=== PATIENT | male | born 1925 | race Caucasian/White ===

== ENCOUNTER → 2016-10-01 | Outpatient (CLI) | payer OTHER ==
[~2016-10-01] MED LIST: ALPR0.5T PO; AML5T PO; ATEN-60 PO; CLON0.2T PO; LEV100T PO; TRIA37.577 PO; [UNRECOGNIZED DRUG - CODE] PO
[2016-10-01 13:19] LABS: Basophils # (auto) 0 uL; Basophils % (auto) 0.2 % (0.0-2.0); Eosinophils # (auto) 0.1 uL; Eosinophils % (auto) 0.7 % (0.0-7.0); Hematocrit 38.9 % (41.0-53.0); Hemoglobin 12.6 g/dL (13.5-17.5); Lymphocytes % (auto) 22.4 % (10.0-50.0); Mean Corpuscular Hemoglobin 29.2 pg (28.0-32.0); Mean Corpuscular Hgb Conc. 32.5 g/dL (32.0-36.0); Mean Corpuscular Volume 89.7 fL (80.0-100.0); Mean Platelet Volume 9.3 fL (7.4-10.4); Monocytes # (auto) 0.7 uL; Monocytes % (auto) 7.8 % (0.0-12.0); Neutrophils # (auto) 6.2 uL; Neutrophils % (auto) 68.9 % (37.0-80.0); Platelet Count (auto) 165 10^3/uL (140-450); Red Cell Distribution Width 15.9 % (11.6-16.0)
[2016-10-01 13:40] LABS: Albumin 4.1 g/dL (3.4-5.0); BUN/Creatinine Ratio 17.4; Bilirubin, Total 0.8 mg/dL (0.2-1.0); Calcium 9.6 mg/dL (8.5-10.1); Potassium 4.3 mmol/L (3.5-5.1)
== END | disposition home or self-care (01) ==
LOC: LAB 12:35
PROVIDERS: ATTEND Internal Medicine
DX: I10 Essential (primary) hypertension (principal); E03.9 Hypothyroidism, unspecified
CPT/HCPCS: 36415; 80053; 84439; 84443; 85025

== ENCOUNTER 2016-10-11 11:28 | Emergency (ER) | payer OTHER ==
[~2016-10-11] VITALS: Ht 175.3 cm; Wt 108.9 kg
[2016-10-11 12:06] VITALS: BP 138/92
[2016-10-11 13:25] LABS: Basophils # (auto) 0 uL; Basophils % (auto) 0.1 % (0.0-2.0); Eosinophils # (auto) 0.1 uL; Eosinophils % (auto) 0.8 % (0.0-7.0); Hematocrit 35.9 % (41.0-53.0); Hemoglobin 11.7 g/dL (13.5-17.5); Lymphocytes # (auto) 1.3 uL; Lymphocytes % (auto) 12.8 % (10.0-50.0); Mean Corpuscular Hemoglobin 29.3 pg (28.0-32.0); Mean Corpuscular Hgb Conc. 32.5 g/dL (32.0-36.0); Mean Platelet Volume 9.4 fL (7.4-10.4); Monocytes % (auto) 9.6 % (0.0-12.0); Neutrophils # (auto) 7.7 uL; Neutrophils % (auto) 76.7 % (37.0-80.0); Platelet Count (auto) 207 10^3/uL (140-450); Red Cell Distribution Width 15.3 % (11.6-16.0)
[2016-10-11 14:00] LABS: Albumin 3.4 g/dL (3.4-5.0); Alkaline Phosphatase 87 U/L (45-117); Anion Gap 12 (5-15); Aspartate Aminotransferase 32 U/L (15-37); BUN/Creatinine Ratio 21.2; Bilirubin, Total 1.1 mg/dL (0.2-1.0); Blood Urea Nitrogen 22 mg/dL (7-18); Calcium 8.9 mg/dL (8.5-10.1); Carbon Dioxide 26 mmol/L (21-32); Chloride 104 mmol/L (98-107); GFR African American 86 mL/min; GFR Non-African American 71 mL/min; Glucose 100 mg/dL (74-106); Magnesium 2.4 mg/dL (1.6-2.6); Potassium 3.7 mmol/L (3.5-5.1); Sodium 142 mmol/L (136-145); Total Protein 7.6 g/dL (6.4-8.2)
== END 2016-10-11 15:38 | disposition left against medical advice (07) ==
LOC: ER 11:28
DX: R53.1 Weakness (principal); R06.02 Shortness of breath; Z53.21 Procedure and treatment not carried out due to patient leaving prior to being seen by health care provider
CPT/HCPCS: 36415; 71020; 80053; 83735; 84484; 85025; 93005

== ENCOUNTER → 2016-12-03 | Outpatient (CLI) | payer OTHER ==
[2016-12-03 16:54] LABS: Basophils # (auto) 0 uL; Basophils % (auto) 0.4 % (0.0-2.0); Eosinophils # (auto) 0.1 uL; Eosinophils % (auto) 1.3 % (0.0-7.0); Hematocrit 38.2 % (41.0-53.0); Hemoglobin 12.3 g/dL (13.5-17.5); Lymphocytes # (auto) 1.8 uL; Lymphocytes % (auto) 25.2 % (10.0-50.0); Mean Corpuscular Hemoglobin 28.6 pg (28.0-32.0); Mean Corpuscular Hgb Conc. 32.2 g/dL (32.0-36.0); Mean Corpuscular Volume 88.8 fL (80.0-100.0); Mean Platelet Volume 8.7 fL (7.4-10.4); Monocytes # (auto) 0.6 uL; Monocytes % (auto) 8.8 % (0.0-12.0); Neutrophils # (auto) 4.7 uL; Neutrophils % (auto) 64.3 % (37.0-80.0); Platelet Count (auto) 170 10^3/uL (140-450); White Blood Cell 7.3 10^3/uL (4.4-10.8)
== END | disposition home or self-care (01) ==
LOC: LAB 15:43
PROVIDERS: ATTEND Internal Medicine
DX: I10 Essential (primary) hypertension (principal)
CPT/HCPCS: 36415; 82607; 83540; 84132; 84439; 84443; 85025

== ENCOUNTER → 2017-04-21 | Outpatient (CLI) | payer OTHER ==
[2017-04-21 08:23] LABS: Basophils # (auto) 0.1 uL; Basophils % (auto) 1.1 % (0.0-2.0); Eosinophils # (auto) 0.1 uL; Eosinophils % (auto) 0.9 % (0.0-7.0); Hematocrit 37.7 % (41.0-53.0); Hemoglobin 12.4 g/dL (13.5-17.5); Lymphocytes % (auto) 29.7 % (10.0-50.0); Mean Corpuscular Hemoglobin 29.6 pg (28.0-32.0); Mean Corpuscular Hgb Conc. 32.8 g/dL (32.0-36.0); Mean Corpuscular Volume 90.2 fL (80.0-100.0); Mean Platelet Volume 8.9 fL (6.9-10.8); Monocytes # (auto) 0.7 uL; Monocytes % (auto) 10.8 % (0.0-12.0); Neutrophils # (auto) 3.9 uL; Neutrophils % (auto) 57.5 % (37.0-80.0); Nucleated Red Blood Cells % 0.1 %; Platelet Count (auto) 175 10^3/uL (140-450); Red Cell Distribution Width 14.9 % (11.8-14.3); White Blood Cell 6.8 10^3/uL (4.4-10.8)
[2017-04-21 09:10] LABS: Urine Bilirubin Negative (Negative); Urine Blood Negative /uL (Negative); Urine Color Yellow (Yellow); Urine Glucose Normal (Normal); Urine Ketone Negative (Negative); Urine Nitrite Negative (Negative); Urine RBC 1 /hpf (0 - 3); Urine Urobilinogen Normal (Negative)
[2017-04-21 09:19] LABS: Albumin 3.5 g/dL (3.4-5.0); BUN/Creatinine Ratio 19.4; Bilirubin, Total 0.8 mg/dL (0.2-1.0); Total Protein 8.2 g/dL (6.4-8.2)
== END | disposition home or self-care (01) ==
LOC: LAB 07:47
PROVIDERS: ATTEND Internal Medicine
DX: I10 Essential (primary) hypertension (principal); I71.2 Thoracic aortic aneurysm, without rupture
CPT/HCPCS: 36415; 80053; 80061; 81001; 82043; 84439; 84443; 85025; 85652

== ENCOUNTER → 2017-07-05 | Outpatient (CLI) | payer OTHER | END | disposition home or self-care (01) | LOC: LAB 08:44 | PROVIDERS: ATTEND Physician Assistant | DX: C44.329 Squamous cell carcinoma of skin of other parts of face (principal) ==